=== PATIENT | male | born 1960 | race Caucasian/White ===

== ENCOUNTER 2023-09-15 06:29 | Day surgery (SDC) | payer OTHER, SELFPAY ==
[2023-09-15] VITALS (12 sets, daily range): BP systolic 121–156; BP diastolic 65–90; BMI 42.0
[2023-09-15] MEDS: LOW STRENGTH ASPIRIN 81 MG PO (07:13)
[2023-09-15] MEDS: NSS 399 ML IV (07:14)
[2023-09-15 07:20] LABS: Hematocrit 38.1 % (39.0-52.0); Hemoglobin 13.2 g/dL (13.0-18.0); Mean Corp Hgb Conc. 34.6 g/dL (33.0-37.0); Mean Corpuscular Hgb 27.7 pg (27.0-31.0); Mean Corpuscular Volume 79.9 fL (80.0-94.0); Mean Platelet Volume 8.2 fL (7.4-10.4); Platelet Count 313 10^3/uL (130-400); Red Blood Cell Count 4.77 10^6/uL (4.70-6.10); Red Cell Dist. Width 13.2 % (11.5-14.5); White Blood Cell Count 9.3 10^3/uL (4.8-10.8)
--- NOTE | 2023-09-15 07:31 | ITS.CL.CATH ---
[employer]k1 Operator - Catheterization
Cardiac Catheterization
Procedure Report:
LEFT HEART CATHETERIZATION
Date of Procedure: September 15, 2023
Referring: Jennifer Cruz MD, [facility], [facility]
PROCEDURES:
1. Left heart catheterization, coronary angiogram.
2. Ultrasound-guided access
INDICATION: Mr Asher is a 63-year-old gentleman with past medical history of morbid obesity, hypertension, hyperlipidemia, prediabetes, anxiety/depression, recently diagnosed new onset paroxysmal atrial flutter/fibrillation on Xarelto, former
smoker, quit 15 years ago who presented to [facility] in July with complaints of dyspnea on exertion and exertional indigestion found to have new onset atrial flutter with rapid ventricular rate, status post cardioversion on July 14, 2023 with
subsequent 4 weeks of uninterrupted anticoagulation. Given his exertional symptoms he was recommended a stress test which showed an LVEF of 61% but noted a small to moderate area of decreased perfusion in the mid to inferior portion of the lateral
zhu on the stress images suggestive of possible lateral ischemia. He is now referred for a left heart catheterization to rule out obstructive CAD. Echocardiogram was completed during his admission on July 16, 2023 showing normal biventricular
function, biatrial enlargement, sclerotic aortic valve without evidence of stenosis or regurgitation.
ACCESS:
1. Right radial artery, 6 [place] sheath, under ultrasound guidance. Given significant right subclavian artery tortuosity which made it difficult to torque/navigate any catheters into the ascending aorta this access was aborted.
2. Right common femoral artery, 6 [place] sheath, under ultrasound guidance using a micropuncture kit
HEMODYNAMICS : (mmHg)
AO (s/d) : 133/64
LV (s/d) : 144/5
LVEDP : 22
CORONARY FINDINGS
DOMINANCE: Right
LEFT MAIN: The left main artery is a large-caliber vessel which gives rise to the left anterior descending artery and the left circumflex artery. There is minimal luminal irregularities.
LEFT ANTERIOR DESCENDING: The left anterior descending artery is a medium to large caliber vessel which gives rise to 2 major small caliber diagonal branches as it courses through the anterior interventricular groove and wraps around the apex.
Distal to apical LAD has a 60 to 70% stenosis which is tubular. D2 which is a small caliber vessel has mild to moderate diffuse atherosclerotic plaque.
CIRCUMFLEX: The left circumflex artery is a medium caliber vessel which gives rise to 2 major obtuse marginal branches. Ostial left circumflex artery has eccentric 30 to 40% stenosis with mild to moderate degree of tortuosity. There is 60 to 70%
ostial OM1 stenosis which is eccentric. There is 100% chronic total occlusion of ostial OM 2 with faint left to left collaterals.
RIGHT CORONARY ARTERY: The right coronary artery is a medium to large caliber, dominant vessel which gives rise to the right posterior descending artery and the right posterolateral system. Distal RCA just proximal to the bifurcation of the RPDA
and RPL has tubular 30 to 40% stenosis. Otherwise there is minimal luminal irregularities.
SEDATION: 42 minutes of procedural sedation was utilized. An independent medical receptionist biller was present to assist with and help manage the patient's level of consciousness and physiologic status.
RADIATION SUMMARY: Fluoro Time (min): 7.4, Dose (mGy): 545.98, DAP (Gy.cm2) : 46.1
Closure Device:
1. Vascular band over right radial artery, 12 cc of air.
2. 6 [place] Angio-Seal over the right common femoral artery with successful hemostasis.
CONCLUSIONS
1. Right dominant circulation.
2. Chronic total occlusion of ostial OM 2 with left to left collaterals.
3. Non-obstructive coronary artery disease otherwise.
4. Elevated LVEDP at 22 mmHg.
RECOMMENDATIONS
1. Continue medical therapy for underlying coronary artery disease and optimization of invasive filling pressures.
2. Aggressive management of cardiovascular risk factors.
3. Wean radial band per protocol. Bedrest per protocol for right common femoral arterial access.
4. Referral for outpatient cardiac rehab.
5. Plan to resume Xarelto tomorrow evening.
Jennifer Cruz MD, FACC, [facility]
[2023-09-15] MEDS: LASIX 20 MG IV (09:01)
== END 2023-09-15 11:43 | disposition home or self-care (01) ==
LOC: CATH 06:29
PROVIDERS: ATTENDING PHYSICIAN Internal Medicine Interventional Cardiology; FAMILY PHYSICIAN Internal Medicine
DX: I25.10 Atherosclerotic heart disease of native coronary artery without angina pectoris (principal); I25.82 Chronic total occlusion of coronary artery; I48.92 Unspecified atrial flutter; I10 Essential (primary) hypertension; E78.5 Hyperlipidemia, unspecified; R73.03 Prediabetes; Z87.891 Personal history of nicotine dependence; Z79.82 Long term (current) use of aspirin; Z79.01 Long term (current) use of anticoagulants; Z79.84 Long term (current) use of oral hypoglycemic drugs
CPT/HCPCS: 99152; 99153; C1894; 85027; 93458; C1760; Q9967

== ENCOUNTER 2024-01-21 09:03 | Day surgery (SDC) | payer OTHER, SELFPAY ==
[2023-12-26 12:33] VITALS: BMI 42.5
[2023-12-26 13:10] LABS: % Basophils 0.6 % (0-2); % Eosinophils 1.7 % (0-6); % Immature Granulocytes 0.6 % (0-0.5); % Lymphocytes 24.4 % (20.5-51.1); % Monocytes 9.7 % (1.7-9.3); Absolute Basophils 0.1 10^3/uL (0-0.2); Absolute Eosinophils 0.2 10^3/uL (0-0.7); Absolute Immature Granulocytes 0.1 10^3/uL (0-0.05); Absolute Lymphocytes 2.7 10^3/uL (1.2-3.4); Absolute Monocytes 1.1 10^3/uL (0.1-0.6); Absolute Neutrophils 7.1 10^3/uL (1.4-6.5); Hematocrit 40.4 % (39.0-52.0); Hemoglobin 13.7 g/dL (13.0-18.0); Mean Corp Hgb Conc. 33.9 g/dL (33.0-37.0); Mean Corpuscular Hgb 27.8 pg (27.0-31.0); Mean Corpuscular Volume 82.1 fL (80.0-94.0); Mean Platelet Volume 8.3 fL (7.4-10.4); Nucleated Red Blood Cells % 0 % (-); Platelet Count 333 10^3/uL (130-400); Red Blood Cell Count 4.92 10^6/uL (4.70-6.10); Red Cell Dist. Width 13.2 % (11.5-14.5); White Blood Cell Count 11.2 10^3/uL (4.8-10.8)
[2023-12-26 13:19] LABS: INR 1.07; PT 13.7 Sec (11.4-14.6)
[2023-12-26 13:22] LABS: ALT (SGPT) 24 U/L (0-50); AST (SGOT) 21 U/L (17-59); Albumin 4.8 g/dl (3.5-5.0); Alkaline Phosphatase 88 U/L (38-126); Blood Urea Nitrogen 25 mg/dl (9-20); Calcium 9.8 mg/dl (8.4-10.2); Carbon Dioxide 27 mmol/L (22-30); Chloride 101 mmol/L (98-107); Estimated Creatinine Clearance 107 ml/min; Glucose 96 mg/dl (70-99); Magnesium 1.9 mg/dl (1.6-2.3); Potassium 4.1 mmol/L (3.5-5.1); Sodium 142 mmol/L (135-145); Total Bilirubin 0.3 mg/dl (0.2-1.3); Total Protein 7.6 g/dl (6.3-8.2); eGFR > 60.00
[2024-01-21] VITALS (11 sets, daily range): BP systolic 122–155; BP diastolic 63–93
[2024-01-21 09:29] LABS: Hematocrit 42.5 % (39.0-52.0); Mean Corp Hgb Conc. 32.9 g/dL (33.0-37.0); Mean Corpuscular Hgb 27.1 pg (27.0-31.0); Mean Corpuscular Volume 82.2 fL (80.0-94.0); Mean Platelet Volume 8.1 fL (7.4-10.4); Platelet Count 284 10^3/uL (130-400); Red Blood Cell Count 5.17 10^6/uL (4.70-6.10); Red Cell Dist. Width 13.3 % (11.5-14.5); White Blood Cell Count 10.9 10^3/uL (4.8-10.8)
[2024-01-21 09:39] LABS: ALT (SGPT) 23 U/L (0-50); AST (SGOT) 25 U/L (17-59); Albumin 4.7 g/dl (3.5-5.0); Alkaline Phosphatase 101 U/L (38-126); Blood Urea Nitrogen 22 mg/dl (9-20); Calcium 9.6 mg/dl (8.4-10.2); Carbon Dioxide 29 mmol/L (22-30); Chloride 102 mmol/L (98-107); Estimated Creatinine Clearance 107 ml/min; Glucose 109 mg/dl (70-99); Potassium 4.4 mmol/L (3.5-5.1); Sodium 141 mmol/L (135-145); Total Bilirubin 0.6 mg/dl (0.2-1.3); Total Protein 7.5 g/dl (6.3-8.2); eGFR > 60.00
--- NOTE | 2024-01-21 12:46 | ITS.CL.ABL ---
General Production Worker - Ablation
Ablation
Procedure Report:
Primary Computer System Specialist: Jennifer Cruz MD
Procedure Date: 01/21/2024
Procedure
Electrophysiology Study, with RA, CS pacing and recording
Radiofrequency Ablation for Counterclockwise Cavotricuspid Isthmus-dependent Right Atrial Flutter
Three-dimensional Electroanatomic Mapping and Navigation
Patient History
See H&P for complete details
Patient is a pleasant 63-year-old male with past medical history significant for hypertension, CAD, dyslipidemia, obesity, tobacco use, borderline diabetes, sleep apnea, history of DVT, history of retinal detachment with peripheral vision loss, and
paroxysmal symptomatic typical atrial flutter.
Method
After informed consent was obtained, the patient was brought to the EP lab in a post-absorptive, non-sedated state. A peripheral IV was in place. Continuous electrocardiography, blood pressure and pulse oximetry monitoring were initiated and
cardioversion / defibrillator patch electrodes were positioned on the chest in an anterior-posterior orientation. Sedation was administered via the anesthesia services. A time-out was called. Local anesthesia was administered at the right femoral
vein access site. Vascular access was achieved using modified Seldinger technique, and 3 sheaths were placed.
The patient entered the room in sinus rhythm. A multipolar catheter were advanced to the coronary sinus. A mapping / ablation catheter was used to record and pace. Intracardiac ultrasound (ICE) was utilized for structural assessment and monitoring.
Tachycardia was characterized by activation patterns in the CS catheters. Entrainment maneuvers established cavotricuspid isthmus-dependence.
Three-dimensional electroanatomic mapping was utilized. Catheter ablation in the right atrium was performed as described below. Ablation continued until a line was complete from the tricuspid valve annulus to the IVC-RA junction. Clockwise and
counterclockwise trans-isthmus times were determined, and RA activation patterns confirmed bidirectional block. Interval measurements in NSR were made. A waiting period was observed, after which the procedure was concluded.
At the end of the procedure, all catheters and sheaths were removed, hemostasis was assured in the standard fashion, and the patient was taken to the recovery area in stable condition.
Mapping and Ablation
Utilizing electroanatomic three-dimensional navigation, a 3.5 mm tip Priccut SE irrigated ablation catheter was advanced to the right atrium with the assistance of an 11.5 Fr Agilis steerable long sheath. An electroanatomic three-dimensional map
of the right atrium was constructed, with careful attention to anatomic landmarks, including the coronary sinus, IVC-RA and SVC-RA junction, tricuspid valve annulus, and region of the His bundle electrogram.
An ablation line was created from the tricuspid annulus to the IVC in the 6:00 position (POLISH clock). Power was set at 30 Mar with careful monitoring of impedance, temperature, and EGMs. The line was completed during CS pacing, and bidirectional
block was achieved. Initial trans-isthmus time was noted a 55 ms bidirectionally prior to ablation which increased to 175 ms bidirectionally at ablation end and following waiting period. The ablation line was mapped to ensure widely spaced double
potentials, and after a waiting period, bidirectional block persisted. During electrophysiology study, no atrial flutter or arrhythmia was induced.
Baseline Intervals:
Rhythm: SR
FL: 220 ms
QRS: 109 ms
QT: 406 ms
QTc: 412 ms
A-A: 971 ms
R-R: 971 ms
Post-Procedure Intervals:
FL: 220 ms
QRS: 95 ms
QT: 377 ms
QTc: 407 ms
A-A: 856 ms
R-R:856 ms
AVWB: 470 ms
AVNERP: 600/370 ms
No arrhythmia was inducible post ablation
Estimated Blood Loss
<5 mL
Complications
None
Conclusions
- Successful ablation of the cavotricuspid isthmus with bidirectional block for typical atrial flutter
Recommendations
- Anticipate discharge home today
- Bedrest with straight leg precautions for four hours
- Resume anticoagulation tonight if patient/groins stable
- Continue remaining home medications as indicated
- Follow-up in clinic as scheduled
James Houston DO
Clinical Cardiac Electrophysiology
cc: Jennifer Cruz MD; Yudi Tran DO
== END 2024-01-21 17:10 | disposition home or self-care (01) ==
LOC: CATH 09:03
PROVIDERS: ATTENDING PHYSICIAN Internal Medicine Cardiovascular Disease; FAMILY PHYSICIAN Internal Medicine; OTHER PHYSICIAN Internal Medicine Interventional Cardiology
DX: I48.3 Typical atrial flutter (principal); I25.10 Atherosclerotic heart disease of native coronary artery without angina pectoris; I10 Essential (primary) hypertension; E78.5 Hyperlipidemia, unspecified; G47.33 Obstructive sleep apnea (adult) (pediatric); E66.01 Morbid (severe) obesity due to excess calories; Z68.41 Body mass index [BMI] 40.0-44.9, adult; R73.03 Prediabetes; Z87.891 Personal history of nicotine dependence; Z79.01 Long term (current) use of anticoagulants; Z79.84 Long term (current) use of oral hypoglycemic drugs; Z79.85 Long-term (current) use of injectable non-insulin antidiabetic drugs
CPT/HCPCS: C1894; C1766; C2630; C1759; 36415; 75572; 80053; 83735; 85025; 85027; 85610; 86850; 86900; 86901; 93005; 93653; Q9967